=== PATIENT | female | born 1985 | race African-American/Black ===

== ENCOUNTER 2019-11-08 06:30 | Emergency (ER) | payer OTHER ==
[2019-11-08] MEDS ORDERED: DEXAMETHASONE SOD PHOSPHATE 10 MG/1 ML VIAL ONE (06:36)
--- NOTE | 2019-11-08 06:36 | PDOC ---
Medical Decision Making - Medical Decision Making 11/08/19 06:34 Patient seen briefly at the bedside on arrival status post dexamethasone 10 mg and DuoNeb still currently in progress given by EMS with likely asthma exacerbation Breath sounds are diminished though there is active wheezing Additional DuoNeb's x2 ordered No acute evidence of pending respiratory failure Discharge - Discharge Information Problems reviewed: Yes Clinical Impression/Diagnosis: Asthma exacerbation - Follow up/Referral - Patient Discharge Instructions - Post Discharge Activity
[2019-11-08 06:37] VITALS: BP 136/76; PULSE 88; TEMP 98.3; BMI 29.0
[2019-11-08] MEDS ORDERED: ALBUTEROL SO4 2.5/IPRATROPIUM 0.5 INH SOL 3 ML VIAL.NEB. NEB ONE (06:37)
--- NOTE | 2019-11-08 07:19 | PDOC ---
*Physical Exam - Vital Signs Last Vital Signs Temp Pulse Resp BP Pulse Ox 98.3 F 88 20 136/76 100 11/08/19 06:33 11/08/19 06:33 11/08/19 06:33 11/08/19 06:33 11/08/19 06:33 - Physical Exam Sign out was given by night team. H&P: 34 F with hx of asthma and Graves dx presented to the ED with acute episode of SOB. It happened this morning. She endorsed coughing the past 2 days, after she turned on her AC. She has runny nose, coughing, increased sputum. She thinks thi s is like an asthma exacerbation. She denies sick contact, fever, chills, N/V/D/ abdominal pain, chest pain. She never been intubated, or in the ICU. Patient supposed to use simbicort daily, but admitted to not use it. Patient smoke daily. PMHX: as in HPI PSHX: none Meds: albuterol and simbicort pump Allergies: none Tob: daily Etoh: none Rec drugs: none PCP: ROS GENERAL/CONSTITUTIONAL: No fever or chills. No weakness. HEAD, EYES, EARS, NOSE AND THROAT: No change in vision. No ear pain or dis charge. No sore throat. +runny nose CARDIOVASCULAR: No chest pain ,+shortness of breath RESPIRATORY: + cough, wheezing, , no hemoptysis. GASTROINTESTINAL: No nausea, vomiting, diarrhea or constipation. GENITOURINARY: No dysuria, frequency, or change in urination. MUSCULOSKELETAL: No joint or muscle swelling or pain. No neck or back pain. SKIN: No rash NEUROLOGIC: No headache, vertigo, loss of consciousness, or change in s trength/sensation. ENDOCRINE: No increased thirst. No abnormal weight change HEMATOLOGIC/LYMPHATIC: No anemia, easy bleeding, or history of blood clots. ALLERGIC/IMMUNOLOGIC: No hives or skin allergy. PE GENERAL: Awake, alert, and fully oriented, in no acute distress, comfortable , admitted to improved after meds and duoned. HEAD: No signs of trauma, normocephalic, atraumatic EYES: PERRLA, EOMI, sclera anicteric, conjunctiva clear, proptosis bilat, ENT: Auricles normal inspection, hearing grossly normal, nares patent, oropharynx clear without exudates. Moist mucosa NECK: Normal ROM, supple, no lymphadenopathy, JVD, or masses LUNGS: No distress, speaks full sentences, clear to auscultation bilaterally, No wheezes, mild dinished breath sound at the bases, bilat. No intercoastal retraction. No heavy breathing. HEART: Regular rate and rhythm, normal S1 and S2, no murmurs, rubs or gallops, peripheral pulses normal and equal bilaterally. ABDOMEN: Soft, nontender, normoactive bowel sounds. No guarding, no rebound. No masses EXTREMITIES : Normal inspection, Normal range of motion, no edema. No clubbing or cyanosis. NEUROLOGICAL: Cranial nerves II through XII grossly intact. Normal speech, normal gait, no focal sensorimotor deficits SKIN: Warm, Dry, normal turgor, no rashes or lesions noted General appearance: Lung sounds: 11/08/19 07:23 11/08/19 07:36 11/08/19 08:44 EKG : yessica rate 80 , reg rhthym, normal sinus rhtym, incomplete RBBB, called [facility] for previous EKG, but they don't have record from her. Will do lab to rule out emergent situation. 11/08/19 10:25 ED Treatment Course - LABORATORY CBC & Chemistry Diagram: 11/08/19 08:00 11/08/19 08:00 Medical Decision Making - Medical Decision Making 11/08/19 09:47 Lab came back with neg trop, low TSH, high T4 (correlates to Graves disease), elevated WBC of 11. K=2.3 due to duoneb. Need to replace K , plan to do 60 [address]. Patient wanted to go AMA. Note: The patient insists on leaving the emergency dept and is signing out against medical advice. The patient understands the risks and complications that may result from the refusal of medical care and admission which includes and permanent disability. The patient has the mental capacity of understanding the risks of r efusing care and is capable of making an informed decision. Patient has been warned of Hypokalemia and the risk. She understands that she needs to follow up with [facility] since that is her regular ED site. The patient was instructed to return to the emergency department should she feels abnormal: Nausea, vomitting, heart palpitation, change mental status, mind regarding medical care or should her condition worsen. The patient signed the Against Medical Advice form. 11/08/19 10:33 Patient signed the AMA paper. Pharmacy scripts are sent. Instructions and discharge papers are sent. Discharge - Discharge Information Problems reviewed: Yes Clinical Impression/Diagnosis: Cough, Hypokalemia Asthma exacerbation Qualifiers: Asthma severity: mild Asthma persistence: intermittent Qualified Code(s): J45.21 - Mild intermittent asthma with (acute) exacerbation Condition: Improved Disposition: AGAINST MEDICAL ADVICE - Admission No - Additional Discharge Information Prescriptions: predniSONE [Deltasone -] 40 mg PO DAILY 4 Days #8 tablet Cetirizine HCl [Zyrtec] 10 mg PO DAILY PRN #14 tablet PRN Reason: Allergies - Follow up/Referral - Patient Discharge Instructions Patient Printed Discharge Instructions: Asthma -- Adult, DI for Hypokalemia Additional Instructions: You are here today for asthma exacerbation. We gave you medications, and observed you. You felt much better. We will prescribe you zertyz which is an allergy medication. Please use them as prescribed. Read the label. 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 This is urgent. If you experienced another bout of asthma exacerbation, or experienced d ifficulty breathing, or moving air, please use the albuterol and simbicort, or come back to the ED. We will also prescribe you a taper steroid. - Post Discharge Activity
--- NOTE | 2019-11-08 08:20 | PDOC ---
Attending Attestation - Resident Resident Name: ChinchillaDonte - ED Attending Attestation I have performed the following: I have examined & evaluated the patient, The case was reviewed & discussed with the resident, I agree w/resident's findings & plan - HPI HPI: 11/08/19 08:13 34-year-old female with history of asthma on albuterol as needed but noncompliant with her daily inhaler, history of Graves' disease primarily followed at [facility] presents now sent by her employer at a local group home after concern for asthma exacerbation was. Patient was in her usual state of good health, over the last 2 days was awakening with some rhinorrhea and chest congestion with cough with yellow sputum, no actual chest pain. Use her albuterol on occasion with some relief, while at work developed a coughing fit and was sent to the emergency department. Prior to my evaluation, received duo nebs and steroids, feels better now, no other exertional cardiopulmonary complaints, no recent travel, no leg swelling. - Physicial Exam PE: 11/08/19 08:15 Vital signs stable Seated comfortably in stretcher speaking full sentences Eyes are proptotic, oropharynx is clear Heart is regular, lungs are clear with slight decrease at the left base Abdomen benign No edema or calf tenderness - Medical Decision Making 11/08/19 08:20 34-year-old female with history of mild persistent asthma presents with 2 days of URI symptoms of nasal congestion and cough, now with coughing fit concern for asthma exacerbation. Well-appearing here after nebulizers, no respiratory distress, no active wheezing after nebulizers. Possible asthma exacerbation, rule out superimposed infectious process. Less likely cardiac from underlying thyroid condition. EKG performed and notable for LVH with precordial strain pattern, no prior EKG available including on phone call to [facility] Check labs and chest x-ray to r/o cardiac/infectious process Reassess and disposition accordingly 11/08/19 09:56 hypo-K on labs, known hyperthyroid, otherwise wnl. 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 She wanted to be treated at [facility] to begin with, and states she will go there. pt signed out AMA, states will f/u. understands urgent return criteria and that she can return here any time. Heart Score/ECG Review #1 ECG reviewed & interpreted by me at: 06:57 General ECG Interpretation: Sinus Rhythm, Normal Rate (80), Normal Intervals (RBBB, LVH with strain pattern), No acute ischemic changes Compared to previous ECG there are: Previous ECG unavail Discharge - Discharge Information Problems reviewed: Yes Clinical Impression/Diagnosis: Cough, Hypokalemia Asthma exacerbation Qualifiers: Asthma severity: mild Asthma persistence: intermittent Qualified Code(s): J45.21 - Mild intermittent asthma with (acute) exacerbation Condition: Improved Disposition: AGAINST MEDICAL ADVICE - Additional Discharge Information Prescriptions: predniSONE [Deltasone -] 40 mg PO DAILY 4 Days #8 tablet Cetirizine HCl [Zyrtec] 10 mg PO DAILY PRN #14 tablet PRN Reason: Allergies - Follow up/Referral - Patient Discharge Instructions Patient Printed Discharge Instructions: Asthma -- Adult, DI for Hypokalemia Additional Instructions: You are here today for asthma exacerbation. We gave you medications, and observed you. You felt much better. We will prescribe you zertyz which is an allergy medication. Please use them as prescribed. Read the label. 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 This is urgent. If you experienced another bout of asthma exacerbation, or experienced difficulty breathing, or moving air, please use the albuterol and simbicort, or come back to the ED. We will also prescribe you a taper steroid. - Post Discharge Activity
[2019-11-08 08:31] LABS: HEMATOCRIT 35.1 % (32.4-45.2); HEMOGLOBIN 11.8 GM/dL (10.7-15.3); MCH 25.4 pg (25.7-33.7); MCHC 33.5 g/dl (32.0-36.0); MEAN CELL VOLUME 76.1 fl (80-96); MEAN PLT VOLUME 10.3 fl (7.5-11.1); PLATELET COUNT 111 K/MM3 (134-434); RBC 4.62 M/mm3 (3.60-5.2); RDW 14.2 % (11.6-15.6); WHITE BLOOD COUNT 11.8 K/mm3 (4.0-10.0)
[2019-11-08 09:38] LABS: ALBUMIN 3.7 g/dl (3.4-5.0); ALK PHOS 135 U/L (45-117); BILIRUBIN,TOTAL 0.9 mg/dL (0.2-1); BLOOD UREA NITROGEN 9.1 mg/dL (7-18); CALCIUM 9.3 mg/dL (8.5-10.1); CHLORIDE 110 mmol/L (98-107); CO2 24 mmol/L (21-32); CREATININE 0.5 mg/dL (0.55-1.3); GLUCOSE,RANDOM 117 mg/dL (74-106); SGOT/AST 16 U/L (15-37); SGPT/ALT 25 U/L (13-61); SODIUM 143 mmol/L (136-145)
[2019-11-08 09:44] LABS: ANION GAP 9 MMOL/L (8-16)
[2019-11-08 09:46] LABS: POTASSIUM 2.5 mmol/L (3.5-5.1)
[2019-11-08] MEDS ORDERED: POTASSIUM CHLORIDE TABS 20 MEQ TABLET.ER (FP) PO ONE (09:56)
--- NOTE | 2019-11-08 10:43 | EKG ---
Test Reason : Blood Pressure : / mmHG Vent. Rate : 080 BPM Atrial Rate : 080 BPM P-R Int : 132 ms QRS Dur : 108 ms QT Int : 428 ms P-R-T Axes : -24 056 031 degrees QTc Int : 493 ms NORMAL SINUS RHYTHM INCOMPLETE RIGHT BUNDLE BRANCH BLOCK VOLTAGE CRITERIA FOR LEFT VENTRICULAR HYPERTROPHY POSSIBLE LATERAL INFARCT , AGE UNDETERMINED T WAVE ABNORMALITY, CONSIDER ANTERIOR ISCHEMIA ABNORMAL ECG NO PREVIOUS ECGS AVAILABLE Confirmed by Soy Germain ([id number]) on 11/08/2019 10:43:06 AM Referred By: Confirmed By:Soy Germain
== END 2019-11-08 10:13 | disposition left against medical advice (07) ==
LOC: JER 06:30
PROC: 3E0F7GC Introduction of Other Therapeutic Substance into Respiratory Tract, Via Natural or Artificial Opening (ICD-10-PCS; principal; 2019-11-08)
DX: J45.21 Mild intermittent asthma with (acute) exacerbation (principal)
CPT/HCPCS: 36415; 80053; 84439; 84443; 84484; 84703; 85027; 93005; 93010; 99285-25